=== PATIENT | female | born 1990 | race Caucasian/White ===

== ENCOUNTER → 2020-04-27 | Outpatient (CLI) | payer SELFPAY ==
[2020-04-27 08:11] VITALS: BMI 22.2
[2020-05-03 13:19] LABS: HPV Reflexed? NOT INDICATED
== END | disposition home or self-care (01) ==
LOC: LABSPEC 14:23
PROVIDERS: PCP Family Medicine; Referring Provider Obstetrics & Gynecology; Visit Provider Obstetrics & Gynecology
DX: Z12.4 Encounter for screening for malignant neoplasm of cervix (principal)
CPT/HCPCS: 88175; G0145

== ENCOUNTER → 2022-05-28 | Outpatient (CLI) | payer SELFPAY ==
[2022-06-04 18:10] LABS: HPV Reflexed? NOT INDICATED
== END | disposition home or self-care (01) ==
LOC: LABSPEC 14:44
PROVIDERS: PCP Family Medicine; Referring Provider Obstetrics & Gynecology; Visit Provider Obstetrics & Gynecology
DX: Z12.4 Encounter for screening for malignant neoplasm of cervix (principal)
CPT/HCPCS: 88175; G0145

== ENCOUNTER 2024-12-31 23:00 | Inpatient (IN) | payer SELFPAY ==
[2024-12-31 20:01] VITALS: BMI 27.0
[2024-12-31 20:08] VITALS: RESP 16; TEMP 36.4
[2024-12-31 20:09] VITALS: BP 131/77; PULSE 74; O2SAT 100
[2024-12-31 21:19] LABS: Absolute Lymphocyte Count 1.94 X10^3/uL (0.83-4.51); Absolute Neutrophil Count 9.5 X10^3/uL (2.0-7.7); Basophil# 0.04 X10^3/uL; Basophil% 0.3 % (0-1); Eosinophil# 0.16 X10^3/uL; Eosinophils% 1.3 % (0-5); Hematocrit 36.9 % (37-47); Hemoglobin 12.5 g/dL (12.0-15.0); Lymphocyte # 1.94 X10^3/ul (0.83-4.51); Lymphocyte % 15.7 % (19-41); Mean Corp Hgb Conc 33.9 g/dL (32-36); Mean Corpuscular Hgb 31.6 pg (27.0-32.0); Mean Corpuscular Volume 93.4 fL (81-99); Mean Platelet Vol. 11.3 fl (6.2-12.0); Monocyte% 5.7 % (0-10); NRBC Flagged by Analyzer 0 % (0-5); Neutrophil # 9.47 X10^3/uL (2.7-7.7); Neutrophil % 76.5 % (47-70); Platelet Count 177 K/mm3 (150-450); RBC Distribution Width CV 13.2 % (11.6-14.6); Red Blood Count 3.95 M/mm3 (4.2-5.4); White Blood Count 12.4 K/mm3 (4.4-11.0)
[2024-12-31 22:07] LABS: HIV Nonreactive (Nonreactive); Hepatitis B Surface Antigen Nonreactive (Nonreactive); Rubella IgG REAC (Nonreactive); Syphilis Antibodies Nonreactive (Nonreactive)
[2024-12-31 22:24] LABS: ALB/GLOB Ratio 1.6 RATIO (0.9-2.4); AST(SGOT) 28 U/L (<=31); Alanine Aminotransfer ALT/SGPT 20 U/L (<=34); Albumin, Serum 4.1 g/dL (3.5-5.0); Alkaline Phosphatase 129 U/L (35-104); Anion Gap 18 (5-15); BUN 9 mg/dL (4-19); BUN/Creat Ratio 17.8 RATIO (10-20); Calcium,Total 9.8 mg/dL (7.6-11.0); Carbon Dioxide 16.6 mmol/L (21.0-32.0); Chloride 102 mmol/L (98-108); Creatinine, Serum 0.52 mg/dL (0.70-1.20); EST Glomerular Filtration Rate 127 (>60); Estimated Creatinine Clearance 139.42 ml/min (50-250); Globulin 2.5 g/dL (2.2-4.2); Glucose 82 mg/dL (70-99); Potassium 3.7 mmol/L (3.3-5.1); Protein, Total 6.6 g/dL (5.9-8.4); Sodium Level 137 mmol/L (133-145); Total Bilirubin 0.64 mg/dL (0.00-1.30)
[2024-12-31 22:35] LABS: Hepatitis C Antibody Nonreactive (Nonreactive)
[2024-12-31 23:03] LABS: ROM Internal Control Test YES-OK TO RESULT pt. (Internal QC); ROM Patient Test POSITIVE (Negative); Record Kit Lot#, ROM+ K3294
[2024-12-31 23:46] VITALS: BP 128/73; PULSE 87; PULSE 96; RESP 14; TEMP 36.3; O2SAT 100
[2024-12-31] MEDS: Lactated Ringers 1,000 ML 999 ML IV (23:55)
[2025-01-01] VITALS (41 sets, daily range): BP systolic 92–134; BP diastolic 51–75; PULSE 60–105; RESP 14–16; TEMP 36.2–37.2; O2SAT 89–100
[2025-01-01] MEDS: fentaNYL-bupivacaine (epidural) 100 ML BAG EPIDURAL (00:56)
[2025-01-01] MEDS: Lactated Ringers 1,000 ML 200 ML IV (00:56)
--- NOTE | 2025-01-01 00:56 | HP.PCM.OB_ITS ---
HPI - General General Date of Admission: 12/31/24 HPI Narrative JOHNATHON LEE, is a 34 y/o @ 40 weeks 6 days by lmp who presents to L&D for labor management. She has a history of a face presentation that she delivered through at [place], followed by a successful vaginal delivery home . She present today requesting IOL an an epidural. Her community services manager, Valerie states that she is not supporting her decision for asking for an induction. She made cervical change while in triage from 3 to 4.5 and membranes ruptured. She was indecisive about having an epidural but is now requesting one chanel. All labs were ordered and GBS came back positive. She is refusing to take the penicillin despite risks to infant. She states that she does not care that the baby will need to be observed after delivery for longer than usual. She is very uncomfortable with contractions upon entering her room and declines exam. Nurse states that she felt the head on last exam and she was 6 cm. meconium stained fluid was also reported. PFSH [facility] Medical History (Updated 01/01/25 @ 01:[address] Maryanne Wilson, DO) Active labor at term Anxiety Estrogen deficiency Home Medications ?Medication ?Instructions ?Recorded ?Last Taken ?Type vit no.95-ferrous 1 tab PO DAILY 12/31/24 Unk nown History fumarate 28 mg-folic acid 800 mcg tablet () Allergy/AdvReac Type Severity Reaction Status Date / Time No Known Allergies Allergy Verified 12/31/24 20:16 Family History (Updated 12/31/24 @ 22:58 by Marcy Gaytan) Father Stomach cancer Leukemia Grandmother No problems noted. Mother Asthma Surgical History H/O oral surgery Social History household members: spouse number of children: 1 current occupational status: employed current occupation: [employer] history of recent travel: No Smoking Status: Never smoker alcohol intake: never substance use type: does not use what type of physical activity do you participate in: aerobics and weight training frequency: 5-6 times per week seatbelt use: always do you feel safe at home: Yes History 1 Elective abortions Hx Para 2 Spontaneous abortions Hx # Term Pregnancies Ectopic pregnancies Hx # Pregnancies Multiple births # of living children Past Pregnancies Del. Date Name GA/Weeks Outcome Route Bth Weight Infant Gen Labor [facility]th [facility] FOB Unknown 2017 Santhosh Unknown live - full term 6'7 Female 24 hrs none Alex Eliud SIMMS Constitutional Constitutional: Denies change in weight, fatigue, fever(s), headache(s), poor appetite or weakness Eyes Eyes: Denies blurry vision, change in vision, seeing flashes or spots in vision ENT HEENT: Denies dizziness, headache(s), loss taste/smell or sore throat Cardiovascular Cardiovascular: Denies chest pain, dizziness, dyspnea, irregular heart rhythm, leg edema, palpitations, rapid heart rate or vomiting Respiratory/Chest Respiratory/Chest: Denies chest tightness, cough, dyspnea or breast pain Gastrointestinal Gastrointestinal: Denies abdominal pain, anorexia, constipation, cramping, diar cass, hemorrhoids, vomiting or weight changes Genitourinary Genitourinary: Denies dysuria, flank pain, genital lesions, genital pain, urinary frequency or urinary urgency Musculoskeletal Musculoskeletal: Denies back pain, difficulty walking, joint pain, limited range of motion, muscle cramps or numbness Integumentary Integumentary: Denies lesions or unusual bruising Neurologic Neurologic: Denies abnormal movements, abnormal speech, dizziness, numbness, seizure-like activity or syncope Psychiatric Psychiatric: Denies anxiety, behavioral changes, change in appetite, change in libido, cognitive impairment, confusion, depression, difficulty concentrating, hallucinations or suicidal thoughts Endocrine Endocrinology: Denies excessive sweating, polydipsia or polyuria Hematologic/Lymphatic Hematologic/Lymphatic: Denies easy bleeding, easy bruising or lymphadenopathy Allergic/Immunologic Allergic/Immunologic: Denies itchy eyes, lip swelling, seasonal rhinorrhea, rhinitis, throat swelling, tongue swelling, eczemia, wheezing or asthma Vital Signs Vital Signs Vital Signs: 12/31/24 20:08 12/31/24 20:08 12/31/24 20:08 Temperature 97.5 F L Temperature Source Temporal Pulse Rate Respiratory Rate 16 Blood Pressure BP Systolic BP Diastolic Pulse Ox 12/31/24 20:09 12/31/24 20:09 12/31/24 20:09 Temperature Temperature Source Pulse Rate 74 Respiratory Rate Blood Pressure 131/77 H BP Systolic 131 BP Diastolic 77 Pulse Ox 100 03/28/25 23:46 12/31/24 23:46 12/31/24 23:46 Temperature Temperature Source Temporal Pulse Rate 96 Respiratory Rate Blood Pressure 128/73 H BP Systolic 128 BP Diastolic 73 Pulse Ox 12/31/24 23:46 12/31/24 23:46 12/31/24 23:46 Temperature Temperature Source Pulse Rate 87 Respiratory Rate 14 Blood Pressure BP Systolic BP Diastolic Pulse Ox 100 12/31/24 23:46 01/01/25 00:38 01/01/25 00:38 Temperature 97.3 F L Temperature Source Pulse Rate 77 Respiratory Rate Blood Pressure 134/62 H BP Systolic 134 BP Diastolic 62 Pulse Ox 01/01/25 00:42 01/01/25 00:42 01/01/25 00:48 Temperature Temperature Source Pulse Rate 74 Respiratory Rate Blood Pressure 115/56 L 128/66 H BP Systolic 115 128 BP Diastolic 56 66 Pulse Ox 01/01/25 00:48 01/01/25 00:53 01/01/25 00:53 Temperature Temperature Source Pulse Rate 78 77 Respiratory Rate Blood Pressure 111/56 L BP Systolic 111 BP Diastolic 56 Pulse Ox Weight Weight: 147 lb 11.355 oz Body Mass Index (BMI) 27.0 Physical Exam Const alert, oriented x3, no apparent distress and healthy appearing General Appearance: cooperative; Negative for anxious HEENT normocephalic Face and Sinus: normal facial exam Eyes EOMs intact bilaterally and no scleral icterus General Eye: normal appearance of both eyes Neck full ROM and supple Lymph Lymphatic: no lymphadenopathy noted Chest Chest: abnormal inspection of the chest Resp normal respiratory effort Effort and Inspection: able to speak in complete sentences Cardio regular rate GI soft to palpation and non-tender Inspection: gravid Palpation: soft; Negative for tender external exam normal Amniotic Fluid: ROM+plus Back/Spine no CVA tenderness Extremity normal to inspection, full ROM and no clubbing, cyanosis or edema General Extremity: Negative for calf tenderness or edema Skin Lesions: no lesions Rashes: no rashes Psych mental status grossly normal Labs Labs Labs: Blood Type O POSITIVE Antibody Screen NEGATIVE Hct 36.9 % (37-47) L Hgb 12.5 g/dL (12.0-15.0) Syphilis Total Ab Nonreactive (Nonreactive) Rubella IgG Antibody REAC (Nonreactive) Hep Bs Antigen Nonreactive (Nonreactive) Hepatitis C Antibody Nonreactive (Nonreactive) HIV 1&2 Antibody Nonreactive (Nonreactive) Assessment & Plan (1) Active labor at term: (2) Poor patient attendance of care: PLAN: Plan Patient presents IAL, plan expectant management for Pain management: plans epidural. GBS positive plan IV PCN, patient refuses. Management of any complications: unknown due to no care with a physician or certified control systems technician. She has a dula and her shock absorption floor layer with her. I will plan to be present for delivery an will carefully observ the tracing before, during and especially after epidural.
[2025-01-01] MEDS: Oxytocin 10 UNITS/ML Vial IM (02:56)
--- NOTE | 2025-01-01 03:03 | OB.VAGDELI_ITS ---
Assessment & Plan (1) Poor patient attendance of care: (2) Active labor at term: Maternal Data Information Final AMBROCIO: 12/25/24 Final AMBROCIO Source: LMP Gestational age: 41 weeks Doctor Who Attended Delivery: Angus Jordan Vaginal Delivery Maternal Presentation Maternal Presentation: Active Labor and Spontaneous Rupture of Membranes Vaginal Delivery Information Procedure Performed: Spontaneous Vaginal Delivery Surgeon/Practitioner: Maryanne Wilson Date of Procedure: 01/01/25 Pre-Procedure Diagnosis: 34 y/o @ 41 weeks, srom and active labor ,meconium stained fluid, poor care Post-Procedure Diagnosis: 34 y/o @ 41 weeks, srom and active labor ,meconium stained fluid, poor care Type of anesthesia: Epidural Estimated Blood Loss: 200cc Time of Delivery: 02:51 Findings Description of procedure: Patient began pushing and delivered the head in the MUKUL presentation. The head was delivered atraumatically and a loose nuchal cord ?1 was identified and easily reduced over the infant's head. The anterior and posterior shoulders delivered without complication followed by the rest of the infant and the was placed on the maternal abdomen. Delayed cord clamping was employed for approximately 60 seconds. Cord was clamped and cut and gentle traction was applied to the cord and the placenta delivered spontaneously immediately following it was noted to be intact with three-vessel cord. The perineum and vagina were inspected and noted to have no laceration. EBL was 200cc. Patient and tolerated delivery well. Procedure findings: viable female infant Josué Amniotic Membrane Rupture Type: Spontaneous Amniotic Fluid Description: Moderate meconium Placental Delivery Description: Spontaneous Placenta Disposition: [facility] Specimen collected: No Cord Vessel Description: 3 Vessels Cord Entanglement: Around neck x 1, loose Nuchal Cord Compression: Without compression A Gender: Female (1 minute): 7 (5 minute): 9 Delayed Cord Clamping: No Reclamation Engineer naval aircrewman avionics: No Post Vaginal Deli Medications given after delivery: IM Pitocin Episiotomy Description: None Laceration: None Complication Complications: No Multi Select Codes Urinary/Genital Urinary/Genital CPT Codes: 36408 Vaginal Delivery Only
--- NOTE | 2025-01-01 03:07 | DCINST_ITS ---
Discharge Instructions Diet Discharge Diet: No restrictions DC O2, CPAP, BIPAP needs Home O2 Discharge instructions: No Dressing / Incision Discharge Activity: Return to Normal Activity, May Not Drive (while taking narcotic pain medications.) and May Shower May resume sexual activity in: 4-6 weeks Dressing / Incision Call your doctor if your incision/area has: Continuous Slow Oozing, Sudden Increased Bleeding, Increased Pain/ Swelling, Increased Redness and Foul Smelling Discharge Follow Up Care Please Follow Up With: Maryanne Wilson, When: Call [phone] to make an appointment with your doctor in 6 weeks. If you had elevated blood pressure or 4th degree laceration, you will need to be seen in 2 weeks. Test Results: Test results from this visit will be discussed in further detail at your follow- up appointment, if applicable. Discharge Plan Admission Admit Date/Time: 12/31/24 23:00 Attending Provider: Maryanne Wilson Primary Care Provider: Radha Lorenzo,Out of Discharge Orders/Prescriptions Prescriptions: No Action PNV cmb#95-ferrous fumarate-FA [] 28 mg iron- 800 mcg tablet 1 tab PO DAILY Referrals / Follow Up: Radha Lorenzo,Out of [Primary Care Provider] -
[2025-01-02 03:00] VITALS: BP 95/50; PULSE 67; PULSE 69; RESP 16; TEMP 36.4; O2SAT 98
[2025-01-02 08:22] VITALS: BP 102/62; PULSE 67; PULSE 69; RESP 16; TEMP 36.3; O2SAT 99
--- NOTE | 2025-01-02 10:30 | PCM.PN.OB ---
Subjective Subjective Patient doing well without complaints. Tolerating PO. Ambulating and voiding without difficulty. Feeding well. Denies chest pain, shortness of breath, calf pain/swelling, fevers, chills, lightheadedness. Objective Data Objective Data Vital Signs: Vital Signs Temp Pulse Resp BP Pulse Ox O2 Del Method 97.3 F L 67 16 102/62 99 Room Air 01/02/25 08:22 01/02/25 08:22 01/02/25 08:22 01/02/25 08:22 01/02/25 08:22 01/02/25 08:22 Oxygen Delivery Method Room Air Weight: 147 lb 11.355 oz Body Mass Index (BMI) 27.0 Intake & Output: Intake and Output for Last 24 Hours 12/31/24 01/01/25 01/02/25 23:59 23:59 23:59 Intake Total 1490 / 1490 Output Total 1550 / 1550 Balance -60 / -60 Lab / Micro Data 12/31/24 21:00 12/31/24 21:00 Micro: Microbiology 12/31/24 21:00 Urine, Clean Catch Chlamydia/Neisseria (PCR) - Final 12/31/24 21:00 Genital vaginal Group B Streptococcus (PCR) - Final Streptococcus Group B ROS Constitutional Constitutional: Denies chills, fatigue, fever(s), poor appetite or weakness Eyes Eyes: Denies blurry vision, change in vision, seeing flashes or spots in vision ENT HEENT: Denies dizziness, headache(s), loss taste/smell or sore throat Cardiovascular Cardiovascular: Denies chest pain, dizziness, dyspnea, irregular heart rhythm, palpitations or rapid heart rate Respiratory/Chest Respiratory/Chest: Denies chest tightness, cough, dyspnea or breast pain Gastrointestinal Gastrointestinal: Denies abdominal pain, constipation or vomiting Genitourinary Genitourinary: Denies dysuria or flank pain Musculoskeletal Musculoskeletal: Denies difficulty walking, joint pain, limited range of motion or numbness Neurologic Neurologic: Denies abnormal movements, abnormal speech, dizziness, numbness, seizure-like activity or syncope Psychiatric Psychiatric: Denies anxiety, behavioral changes, change in appetite, confusion, depression or suicidal thoughts Physical Exam Const alert, oriented x3 and no apparent distress General Appearance: cooperative and comfortable Resp normal respiratory effort Cardio regular rate GI normal to inspection, nondistended, normoactive bowel sounds GI Narrative: uterus is firm below umbilicus Palpation: soft Back/Spine no CVA tenderness and thoraco-lumbar ROM normal Extremity normal to inspection, no clubbing, cyanosis or edema, no calf tenderness and no pedal edema Psych mental status grossly normal, thought process normal, cooperative, affect normal, speech normal, activity/motor behavior normal, denies homicidal ideation and denies suicidal ideation Assessment & Plan (1) Normal vaginal delivery: COMMENT: no doc operations mgr patient - JV - baby girl Josué (2) Poor patient attendance of care: PLAN: Plan s/p PPD # 1 1. routine post delivery care 2. breast feeding- support given 3. rh positive 4. rubella immune 5. dc to home. patient wants to follow up outpatient with her territory sales representative
[2025-01-02 12:57] VITALS: BP 108/55; PULSE 69; PULSE 71; RESP 16; TEMP 37.2; O2SAT 97
== END 2025-01-02 13:10 | disposition home or self-care (01) | DRG 806 ==
LOC: WPOUT 23:04 → WP 23:04
PROVIDERS: Admitting Provider Obstetrics & Gynecology; Referring Provider Obstetrics & Gynecology; Visit Provider Obstetrics & Gynecology
DX: O42.92 Full-term premature rupture of membranes, unspecified as to length of time between rupture and onset of labor (principal); Z37.0 Single live birth; O98.82 Other maternal infectious and parasitic diseases complicating childbirth; B95.1 Streptococcus, group B, as the cause of diseases classified elsewhere; Z53.20 Procedure and treatment not carried out because of patient's decision for unspecified reasons; O77.0 Labor and delivery complicated by meconium in amniotic fluid; O69.81X0 Labor and delivery complicated by cord around neck, without compression, not applicable or unspecified; Z3A.41 41 weeks gestation of pregnancy
CPT/HCPCS: 59025; 59050; 80053; 83036; 84112; 85025; 86703; 86762; 86780; 86803; 86850; 86900; 86901; 87340; 87491; 87591; 87653; 99221; G0378

== ENCOUNTER → 2025-07-28 | Outpatient (CLI) | payer SELFPAY ==
[2025-08-02 19:08] LABS: HPV APTIMA, High Risk Negative (Negative)
== END | disposition home or self-care (01) ==
LOC: LABSPEC 15:15
PROVIDERS: Visit Provider Obstetrics & Gynecology
DX: Z12.4 Encounter for screening for malignant neoplasm of cervix (principal)
CPT/HCPCS: 87624; 88175; G0145